=== PATIENT | male | born 1970 | race Two or more races ===

== ENCOUNTER 2020-01-11 08:53 | Outpatient (CLI) | payer OTHER ==
[~2020-01-11] VITALS: Ht 175.3 cm; Wt 86.2 kg
[2020-01-11] MEDS ORDERED: NEILMED SINUS1 EACH NASAL (11:19)
[2020-01-11] MEDS ORDERED: FLONASE16 GM NASAL (11:20)
[2020-01-11] MEDS ORDERED: ZYRTEC10 M3 PO (11:20)
[2020-01-11] MEDS ORDERED: SINGULAIR10 MG PO (11:21)
[2020-01-11] MEDS ORDERED: AUGMENTIN XR 11 EACH PO (11:21)
== END 2020-01-11 11:36 | disposition home or self-care (01) ==
LOC: OFIC 805 08:53
PROVIDERS: ATTEND Otolaryngology
DX: H90.3 Sensorineural hearing loss, bilateral (principal); R42 Dizziness and giddiness; J32.8 Other chronic sinusitis; H61.23 Impacted cerumen, bilateral

== ENCOUNTER → 2020-02-02 | Outpatient (CLI) | payer OTHER ==
[~2020-02-02] MED LIST: AUGMENTIN XR 11 EACH PO; FLONASE16 GM NASAL; NEILMED SINUS1 EACH NASAL; SINGULAIR10 MG PO; ZYRTEC10 M3 PO
== END | disposition home or self-care (01) ==
LOC: OFIC 805 09:51
PROVIDERS: ATTEND Otolaryngology
DX: H90.3 Sensorineural hearing loss, bilateral (principal); J32.8 Other chronic sinusitis

== ENCOUNTER 2020-09-29 10:58 | Outpatient (CLI) | payer OTHER | END 2020-09-29 12:30 | disposition home or self-care (01) | LOC: OFIC 805 10:58 | PROVIDERS: ATTEND Otolaryngology | DX: R42 Dizziness and giddiness (principal); H90.3 Sensorineural hearing loss, bilateral; J32.8 Other chronic sinusitis ==